=== PATIENT | female | born 1960 | race Hispanic/Latino ===

== ENCOUNTER → 2018-10-18 | Outpatient (CLI) | payer OTHER | END | disposition home or self-care (01) | LOC: OIH 13:58 | PROVIDERS: ATTEND Internal Medicine | DX: M19.011 Primary osteoarthritis, right shoulder (principal); M85.811 Other specified disorders of bone density and structure, right shoulder; R53.1 Weakness; M75.101 Unspecified rotator cuff tear or rupture of right shoulder, not specified as traumatic; Z86.73 Personal history of transient ischemic attack (TIA), and cerebral infarction without residual deficits | CPT/HCPCS: 73030 ==

== ENCOUNTER → 2019-08-30 | Outpatient (CLI) | payer OTHER ==
--- NOTE | 2019-08-30 11:30 | NUR ---
MBSS COMPLETED. SILENT ASPIRATION WITH THIN LIQUIDS AND NECTAR-THICK LIQUIDS VIA CUP SIP. RECOMMEND REGULAR TEXTURE, NECTAR-THICK LIQUIDS VIA TSP; PILLS WHOLE WITH LIQUIDS. RECOMMEND: 1. SKILLED SPEECH THERAPY 2-3XWK TARGETING SWALLOWING. *RECOMMEND NEUROMUSCULAR ELECTRICAL STIMULATION THERAPEUTIC TECHNIQUE 2. REPEAT MBSS 6WKS AFTER THERAPEUTIC INTERVENTION. [employer]OWSPORT INSTRUCTOR PROVIDED THICKENER AND HOW TO REACH NECTAR-THICK LIQUIDS. AND Pt VERBALIZED THAT THEY ARE AWARE ON WHERE TO BUY THICKENER. SNOWSPORT INSTRUCTOR EDUCATED Pt AND ON RISKS AND CONSEQUENCES OF ASPIRATION. THEY VERBALIZED UNDERSTANDING AND COMPLIANCE. ALL QUESTIONS ANSWERED AT THIS TIME. Addendum: 08/30/19 at 1336 by [facility] Amended: Links added.
== END | disposition home or self-care (01) ==
LOC: RAH 10:59
PROVIDERS: ATTEND Internal Medicine Gastroenterology
DX: R13.13 Dysphagia, pharyngeal phase (principal); R13.12 Dysphagia, oropharyngeal phase; Z86.73 Personal history of transient ischemic attack (TIA), and cerebral infarction without residual deficits
CPT/HCPCS: 74230; 92611

== ENCOUNTER → 2020-08-21 | Outpatient (CLI) | payer OTHER | END | disposition home or self-care (01) | LOC: RAH 10:38 | PROVIDERS: ATTEND Internal Medicine Gastroenterology | DX: R13.12 Dysphagia, oropharyngeal phase (principal); R63.3 Feeding difficulties | CPT/HCPCS: 74230; 92611 ==